=== PATIENT | male | born 1970 | race Caucasian/White ===

== ENCOUNTER → 2017-02-28 | Outpatient (CLI) | payer BC ==
[2017-02-28 13:17] LABS: MEAN CORPUSCULAR HEMOGLOBIN 30.1 pg (27.0-33.0); MEAN CORPUSCULAR HGB CONC 34.7 g/dl (32.0-36.5); MEAN CORPUSCULAR VOLUME 86.8 fl (80.0-96.0); PLATELET COUNT, AUTOMATED 218 10^3/uL (150-450); RED CELL DISTRIBUTION WIDTH 12.4 % (11.5-14.5); WHITE BLOOD COUNT 5.3 10^3/uL (4.0-10.0)
[2017-02-28 13:29] LABS: ANION GAP 7 MEQ/L (8-16); BLOOD UREA NITROGEN 17 MG/DL (7-18); CALCIUM LEVEL 9.2 MG/DL (8.5-10.1); CARBON DIOXIDE LEVEL 28 MEQ/L (21-32); CHLORIDE LEVEL 105 MEQ/L (98-107); CREATININE FOR GFR 1.29 MG/DL (0.70-1.30); GLOMERULAR FILTRATION RATE > 60.0 (>60); GLUCOSE, FASTING 106 MG/DL (70-105); INR 0.98; POTASSIUM SERUM 4.9 MEQ/L (3.5-5.1); SODIUM LEVEL 140 MEQ/L (136-145)
== END ==
LOC: M SMT 09:42
PROVIDERS: ATTEND Nurse Practitioner Family
DX: A63.0 Anogenital (venereal) warts (principal)

== ENCOUNTER 2017-03-07 06:04 | Day surgery (SDC) | payer BC ==
[~2017-03-07] VITALS: Ht 177.8 cm; Wt 101.7 kg
[~2017-03-07 06:04] MED LIST: LR 1,000 ML IV ONE
[2017-03-07] MEDS ORDERED: ROCURONIUM BROMIDE 50 MG/5 ML VIAL As Ordered ONE (07:22)
[2017-03-07] MEDS ORDERED: PROPOFOL 200 MG/20 ML VIAL As Ordered ONE (07:22)
[2017-03-07] MEDS ORDERED: LIDOCAINE 2% INJ 100 MG/5 ML SYRINGE As Ordered ONE (07:22)
[2017-03-07] MEDS ORDERED: fentaNYL 100 MCG/2 ML INJECTION (J3010) As Ordered ONE (07:22)
[2017-03-07] MEDS ORDERED: MIDAZOLAM INJ 2 MG/2 ML VIAL (J2250) As Ordered ONE (07:22)
[2017-03-07] MEDS ORDERED: BACITRACIN OINT 30GM As Ordered ONE (07:36)
[2017-03-07] MEDS ORDERED: PROPOFOL 500 MG/50 ML VIAL As Ordered ONE (07:48)
[2017-03-07] MEDS ORDERED: KETOROLAC 60 MG/2 ML VIAL (J1885) As Ordered ONE (08:05)
[2017-03-07] MEDS ORDERED: ONDANSETRON 4MG/2ML VIAL (J2405) As Ordered ONE (08:05)
[2017-03-07] MEDS ORDERED: dexameTHASONE 4 MG/ML 1ML VIAL (J1100) As Ordered ONE (08:05)
[2017-03-07] MEDS ORDERED: BACT800T5 PO (08:16)
[2017-03-07] MEDS ORDERED: TYLE650T35 PO (08:17)
[2017-03-07] MEDS ORDERED: SILVER SULFADIAZINE 1% CR 50 GM JAR TOP ONE (08:17)
[2017-03-07] MEDS ORDERED: LR 1,000 ML IV SCH (09:00)
[2017-03-07] MEDS ORDERED: PERCOCET 5MG/325MG TAB PO PRN (09:00)
[2017-03-07] MEDS ORDERED: fentaNYL 100 MCG/2 ML INJECTION (J3010) IV PRN (09:00)
[2017-03-07] MEDS ORDERED: ONDANSETRON 4MG/2ML VIAL (J2405) IV PRN (09:00)
[2017-03-07 10:35] VITALS: BP 128/82
--- NOTE | 2017-03-07 11:57 | RO ---
DATE OF PROCEDURE: 03/07/2017 PREPROCEDURE DIAGNOSIS: Penile warts. POSTPROCEDURE DIAGNOSIS: Penile warts. FINDINGS: 1 cm penile wart, one in the base of the dorsal surface of the penis and one in the ventral surface of the penis. PROCEDURE: Penile wart biopsy plus CO2 laser ablation of penile warts in the foreskin times two. SURGEON: Jose Maria Dave MD BOILER ERECTOR: None. ANESTHESIA: LMA. COMPLICATIONS: None. ESTIMATED BLOOD LOSS: Minimal. HISTORY OF PRESENT ILLNESS: 46-year-old male patient that has penile warts, one in the dorsal aspect of the penis in the base and one in the ventral aspect of the penis in the mid shaft 1 cm each. For this reason, he has consented for CO2 laser ablation of the penile warts of the foreskin. DESCRIPTION OF PROCEDURE: With the patient under LMA anesthesia in the supine position, after prepping and draping the area of concern, which included the entire genitalia, we started by doing CO2 laser ablation of the penile warts in the base of the penis in the dorsal aspect of the penis with CO2. We then proceeded to actually do incision of the penile wart in the ventral aspect of the foreskin in the mid shaft. This was sent for permanent pathology analysis, and then we performed CO2 laser ablation of the area of excision. We then proceeded to actually, with chromic #3-0 times two, close the area of excision and fulgurated all the area around it that had some warts. We then placed Bacitracin cream on top of a fluff and scrotal support. PLAN: The patient will go home today with antibiotics and Tylenol for pain. Followup at [facility] [place] in about 2 weeks. He cannot have sexual intercourse for about 1 month.
== END 2017-03-07 10:41 | disposition home or self-care (01) ==
LOC: M SDC 06:04
PROVIDERS: ATTEND Urology
DX: A63.0 Anogenital (venereal) warts (principal); F41.9 Anxiety disorder, unspecified; F32.9 Major depressive disorder, single episode, unspecified; N52.9 Male erectile dysfunction, unspecified; K21.9 Gastro-esophageal reflux disease without esophagitis; Z72.0 Tobacco use
CPT/HCPCS: 54057; 88305; 96374; J0690; J1100; J1885; J2250; J2405; J3010

== ENCOUNTER 2017-03-08 11:02 | Day surgery (SDC) | payer BC ==
[~2017-03-08] VITALS: Ht 177.8 cm; Wt 101.2 kg
[~2017-03-08 11:02] MED LIST changes: +BACT800T5 PO; -LR 1,000 ML IV ONE; +TYLE650T35 PO
[2017-03-08] MEDS ORDERED: NS 1,000 ML IV ONE (12:30)
[2017-03-08] MEDS ORDERED: PROPOFOL 200 MG/20 ML VIAL As Ordered ONE ×2 (12:42→12:51)
[2017-03-08] MEDS ORDERED: LIDOCAINE 2% INJ 100 MG/5 ML SDV (FOR ANES.) As Ordered ONE (12:42)
--- NOTE | 2017-03-08 12:49 | ROOR ---
Patient Name: Juice Huber Procedure Date: 03/08/2017 12:31 PM Date of : 1970 Age: 46 Room: [facility] Gender: Male Note Status: Finalized Procedure: Upper GI endoscopy Indications: Suspected esophageal reflux Providers: William Costa Jr, MD Referring MD: Marin Nash MD Requesting Provider: Medicines: Propofol per Anesthesia Complications: No immediate complications. Procedure: Pre-Anesthesia Assessment: - Prior to the procedure, a History and Physical was performed, and patient medications and allergies were reviewed. The patient is competent. The risks and benefits of the procedure and the sedation options and risks were discussed with the patient. All questions were answered and informed consent was obtained. Patient identification and proposed procedure were verified by the physician and the nurse in the pre-procedure area and in the procedure room. Mental Status Examination: alert and oriented. Airway Examination: normal oropharyngeal airway and neck mobility. Respiratory Examination: clear to auscultation. CV Examination: normal. ASA Grade Assessment: II - A patient with mild systemic disease. After reviewing the risks and benefits, the patient was deemed in satisfactory condition to undergo the procedure. The anesthesia plan was to use moderate sedation / analgesia (conscious sedation). Immediately prior to administration of medications, the patient was re-assessed for adequacy to receive sedatives. The heart rate, respiratory rate, oxygen saturations, blood pressure, adequacy of pulmonary ventilation, and response to care were monitored throughout the procedure. The physical status of the patient was re-assessed after the procedure. The Endoscope was introduced through the mouth, and advanced to the second part of duodenum. The upper GI endoscopy was accomplished without difficulty. The patient tolerated the procedure well. Findings: The upper third of the esophagus, middle third of the esophagus and lower third of the esophagus were normal. Moderately severe esophagitis with no bleeding was found at the gastroesophageal junction. Biopsies were taken with a cold forceps for histology. The cardia, gastric fundus and gastric antrum were normal. Diffuse mildly erythematous mucosa without bleeding was found in the prepyloric region of the stomach. Biopsies were taken with a cold forceps for histology. The duodenal bulb, first portion of the duodenum and second portion of the duodenum were normal. Impression: - Normal upper third of esophagus, middle third of esophagus and lower third of esophagus. - Moderately severe reflux esophagitis. Biopsied. - Normal cardia, gastric fundus and antrum. - Erythematous mucosa in the prepyloric region of the stomach. Biopsied. - Normal duodenal bulb, first portion of the duodenum and second portion of the duodenum. Recommendation: - Discharge patient to home (ambulatory). - Return to my office in 1 week. William Costa MD William Costa Jr, MD 03/08/2017 12:49:27 PM This report has been signed electronically. Number of Addenda: 0 Note Initiated On: 03/08/2017 12:31 PM Estimated Blood Loss: Estimated blood loss: none.
--- NOTE | 2017-03-08 13:02 | ROOR ---
Patient Name: Juice Huber Procedure Date: 03/08/2017 12:32 PM Date of : 1970 Age: 46 Room: [facility] Gender: Male Note Status: Finalized Procedure: Colonoscopy Indications: Change in bowel habits Providers: William Costa Jr, MD Referring MD: Marin Nash MD Requesting Provider: Medicines: Propofol per Anesthesia Complications: No immediate complications. Procedure: Pre-Anesthesia Assessment: - Prior to the procedure, a History and Physical was performed, and patient medications and allergies were reviewed. The patient is competent. The risks and benefits of the procedure and the sedation options and risks were discussed with the patient. All questions were answered and informed consent was obtained. Patient identification and proposed procedure were verified by the physician and the nurse in the pre-procedure area and in the procedure room. Mental Status Examination: alert and oriented. Airway Examination: normal oropharyngeal airway and neck mobility. Respiratory Examination: clear to auscultation. CV Examination: normal. ASA Grade Assessment: II - A patient with mild systemic disease. After reviewing the risks and benefits, the patient was deemed in satisfactory condition to undergo the procedure. The anesthesia plan was to use moderate sedation / analgesia (conscious sedation). Immediately prior to administration of medications, the patient was re-assessed for adequacy to receive sedatives. The heart rate, respiratory rate, oxygen saturations, blood pressure, adequacy of pulmonary ventilation, and response to care were monitored throughout the procedure. The physical status of the patient was re-assessed after the procedure. The Colonoscope was introduced through the anus and advanced to the cecum, identified by appendiceal orifice and ileocecal valve. The colonoscopy was performed without difficulty. The patient tolerated the procedure well. The quality of the bowel preparation was adequate and good. Findings: The rectum, recto-sigmoid colon, sigmoid colon, descending colon, transverse colon, ascending colon, cecum, appendiceal orifice and ileocecal valve appeared normal. Impression: - The rectum, recto-sigmoid colon, sigmoid colon, descending colon, transverse colon, ascending colon, cecum, appendiceal orifice and ileocecal valve are normal. - No specimens collected. Recommendation: - Discharge patient to home (ambulatory). - Repeat colonoscopy in 10 years for screening purposes. William Costa MD William Costa Jr, MD 03/08/2017 1:02:06 PM This report has been signed electronically. Number of Addenda: 0 Note Initiated On: 03/08/2017 12:32 PM Estimated Blood Loss: Estimated blood loss: none.
[2017-03-08 13:15] VITALS: BP 124/70
== END 2017-03-08 13:40 | disposition home or self-care (01) ==
LOC: M OPP 11:02
PROVIDERS: ATTEND Surgery
DX: R19.4 Change in bowel habit (principal); Z80.0 Family history of malignant neoplasm of digestive organs; Z83.71 Family history of colonic polyps; K21.0 Gastro-esophageal reflux disease with esophagitis; K31.89 Other diseases of stomach and duodenum; R19.7 Diarrhea, unspecified; R06.83 Snoring; F17.220 Nicotine dependence, chewing tobacco, uncomplicated

== ENCOUNTER → 2022-05-26 | Outpatient (REF) | payer BC, OTHER ==
[~2022-05-26] MED LIST changes: +ACET650T61 PO; -TYLE650T35 PO
== END ==
LOC: M SFHCDERM 17:14
PROVIDERS: ATTEND Nurse Practitioner Family
DX: L82.0 Inflamed seborrheic keratosis (principal)

== ENCOUNTER → 2024-04-17 | Outpatient (CLI) | payer BC | LOC: M WUC 09:40 | PROVIDERS: ATTEND Registered Nurse | DX: J20.9 Acute bronchitis, unspecified (principal); R91.8 Other nonspecific abnormal finding of lung field ==

== ENCOUNTER → 2025-01-30 | Outpatient (CLI) | payer BC ==
[2025-01-30 12:50] LABS: APPEARANCE, URINE CLEAR (CLEAR); BACTERIA, URINE AUTO NEGATIVE (NEGATIVE); BILIRUBIN, URINE AUTO NEGATIVE (NEGATIVE); BLOOD, URINE BLOOD 1+ (NEGATIVE); GLUCOSE, URINE (UA) AUTO NEGATIVE (NEGATIVE); KETONE, URINE AUTO NEGATIVE (NEGATIVE); LEUKOCYTE ESTERASE, URINE AUTO NEGATIVE (NEGATIVE); MUCUS, URINE SMALL (NEGATIVE); NITRITE, URINE AUTO NEGATIVE (NEGATIVE); PROTEIN, URINE AUTO NEGATIVE (NEGATIVE); RBC, URINE AUTO 2 /HPF (0-3); SPECIFIC GRAVITY URINE AUTO 1.024 (1.002-1.035); SQUAMOUS EPITHELIAL CELL UR AU 0 /HPF (0-6); UROBILINOGEN, URINE AUTO 0.2 mg/dL (0.0-2.0); WBC, URINE AUTO 1 /HPF (0-3)
[2025-01-30 12:52] LABS: BASO # 0.0 10^3/uL (0.0-0.2); BASO % 0.5 % (0.0-1.0); EOS # 0.1 10^3/uL (0.0-0.5); EOS % 1.5 % (0.0-3.0); LYMPH # 1.4 10^3/uL (1.5-5.0); LYMPH % 24.0 % (24.0-44.0); MONO # 0.5 10^3/uL (0.0-0.8); MONO % 8.8 % (2.0-8.0); NEUTROPHILS # 3.9 10^3/uL (1.5-8.5); NEUTROPHILS % 65.0 % (36.0-66.0); PLATELET COUNT, AUTOMATED 226 10^3/uL (150-450)
[2025-01-30 13:17] LABS: ALT/SGPT 35.0 U/L (7.0-40); AST/SGOT 25.0 U/L (<34); CALCIUM LEVEL 9.0 MG/DL (8.5-10.1); CARBON DIOXIDE LEVEL 29.0 MMOL/L (20-31); CHLORIDE LEVEL 102.0 MMOL/L (98-107); CHOLESTEROL LEVEL 202.0 MG/DL (<200); CHOLESTEROL RISK RATIO 4.85 (<5); CREATININE FOR GFR 1.15 MG/DL (0.70-1.30); GLOMERULAR FILTRATION RATE 76.6 (>56); LDL CHOLESTEROL 133.0 MG/DL (<100); NON-HDL-C 160.4 MG/DL; POTASSIUM SERUM 4.5 MMOL/L (3.5-5.1); SODIUM LEVEL 139.0 MMOL/L (136-145); TRIGLYCERIDES LEVEL 137.0 MG/DL (<150)
[2025-02-02 16:32] LABS: PSA % FREE 33.0 % (calc) (>25); PSA FREE 0.2 ng/mL; PSA TOTAL 0.6 ng/mL (< OR = 4.0)
== END ==
LOC: M WUC 09:40
PROVIDERS: ATTEND Family Medicine
DX: Z00.01 Encounter for general adult medical examination with abnormal findings (principal); N52.1 Erectile dysfunction due to diseases classified elsewhere